=== PATIENT | female | born 1945 | race Caucasian/White ===

== ENCOUNTER 2017-11-30 07:32 | Day surgery (SDC) | payer MEDICARE ==
[~2017-11-30] VITALS: Ht 160 cm; Wt 69.6 kg
[2017-11-30] VITALS (9 sets, daily range): BP systolic 131–166; BP diastolic 47–74
[2017-11-30] MEDS ORDERED: sod bicarbonate 150mEq in D5W 1,150 ML IV ONE (07:55)
[2017-11-30] MEDS ORDERED: diphenhydrAMINE 25mg capsule PO PRN (07:55)
[2017-11-30 08:19] LABS: BASOPHILS # (AUTO) 0.1 X10'3 (0-0.2); EOSINOPHILS # (AUTO) 0.1 X10'3 (0-0.9); EOSINOPHILS % (AUTO) 2.1 % (0-6); HEMATOCRIT 40.8 % (35.0-45.0); LYMPHOCYTES # (AUTO) 1.5 X10'3 (1.1-4.8); LYMPHOCYTES % (AUTO) 28.2 % (21-51); MEAN CORPUSCULAR HEMOGLOBIN 29.4 PG (27.0-31.0); MEAN CORPUSCULAR HGB CONC 34.3 % (33.0-36.5); MEAN CORPUSCULAR VOLUME 85.7 FL (78-98); MEAN PLATELET VOLUME 8.3 FL (7.4-10.4); MONOCYTES # (AUTO) 0.4 X10'3 (0-0.9); MONOCYTES % (AUTO) 7.6 % (2-12); NEUTROPHILS # (AUTO) 3.2 X10'3 (1.8-7.7); NEUTROPHILS % (AUTO) 61.1 % (42-75); PLATELET COUNT 203 X10'3 (140-440); RED BLOOD COUNT 4.76 X10'6 (4.20-5.60); RED CELL DISTRIBUTION WIDTH 13.4 % (11.5-14.5); WHITE BLOOD COUNT 5.2 X10'3 (4.5-11.0)
[2017-11-30] MEDS ORDERED: normal saline 1000ml 1,000 ML IV SCH (08:20)
[2017-11-30] MEDS ORDERED: OMEG1CAP2 PO (08:27)
[2017-11-30] MEDS ORDERED: GLUC-133 PO (08:27)
[2017-11-30] MEDS ORDERED: ATOR10TA87 PO (08:27)
[2017-11-30] MEDS ORDERED: CHOL10002 PO (08:27)
[2017-11-30] MEDS ORDERED: RED600CA2 PO (08:27)
[2017-11-30] MEDS ORDERED: MULT1TAB74 PO (08:27)
[2017-11-30] MEDS ORDERED: CHRO200C4 PO (08:27)
[2017-11-30] MEDS ORDERED: MAGN500C16 PO (08:27)
[2017-11-30] MEDS ORDERED: BIOT300T3 PO (08:27)
[2017-11-30] MEDS ORDERED: LACTC PO (08:27)
[2017-11-30 08:29] LABS: ALBUMIN 4.2 G/DL (3.4-5.0); ANION GAP 9 (8-16); BLOOD UREA NITROGEN 12 MG/DL (7-18); BUN/CREATININE RATIO 11.4 (6.6-38.0); CALCIUM 9.2 MG/DL (8.5-10.1); CHLORIDE 105 MMOL/L (99-107); CREATININE 1.05 MG/DL (0.40-0.90); GLUCOSE 103 MG/DL (70-104); POTASSIUM 3.9 MMOL/L (3.5-5.1); SODIUM 142 MMOL/L (135-145); eGFR 51 ML/MIN
[2017-11-30 08:30] LABS: PARTIAL THROMBOPLASTIN TIME 27 SECONDS (22-32); PROTHROMBIN TIME 9.9 SECONDS (9.0-12.0)
[2017-11-30] MEDS ORDERED: LIDOcaine 1% w/EPI 1:100,000 30ml vial (MDV) ONE (09:04)
[2017-11-30] MEDS ORDERED: iohexol 350MG/ML 100ml bottle IV ONE ×2 (09:04→10:05)
[2017-11-30] MEDS ORDERED: iohexol 350 MG/ML 50ML vial IV ONE (09:04)
[2017-11-30] MEDS ORDERED: midazolam 2 mg/2 ml injection ONE ×3 (09:05→10:19)
[2017-11-30] MEDS ORDERED: fentaNYL/PF 50MCG/1 ML 2ML syringe ONE (09:05)
[2017-11-30] MEDS ORDERED: heparin 1,000unit/ml 10ml vial 10 ML ONE (09:57)
[2017-11-30] MEDS ORDERED: ticagrelor 90mg tablet ONE (10:19)
[2017-11-30] MEDS ORDERED: TICA90TA PO (11:35)
[2017-11-30] MEDS ORDERED: ASPI81TA52 PO (11:35)
== END 2017-11-30 14:00 | disposition home or self-care (01) ==
LOC: SSTAY O 07:32
PROVIDERS: ATTEND Internal Medicine Cardiovascular Disease
DX: I25.118 Atherosclerotic heart disease of native coronary artery with other forms of angina pectoris (principal); I10 Essential (primary) hypertension; E78.5 Hyperlipidemia, unspecified; Z90.49 Acquired absence of other specified parts of digestive tract; Z87.891 Personal history of nicotine dependence; Z79.82 Long term (current) use of aspirin; Z98.890 Other specified postprocedural states; Z79.899 Other long term (current) drug therapy
CPT/HCPCS: 36415; 80048; 83735; 85025; 85610; 85730; 92920; 93458; 99152; 99153; A6257; C1725; C1760; C1769; C1874; C1894; C9600; J1644; J2250; J3010; J3490; J7030; Q0163; Q9967; A4620